=== PATIENT | female | born 1965 ===

== ENCOUNTER 2019-02-02 10:04 | Emergency (ER) | payer OTHER ==
[~2019-02-02] VITALS: Ht 157.5 cm; Wt 74.4 kg
[2019-02-02] MEDS ORDERED: COZAAR25 MG (11:14)
[2019-02-02] MEDS ORDERED: NORFLEX100MG PO (14:47)
== END 2019-02-02 15:01 | disposition home or self-care (01) ==
LOC: ER 10:04
DX: M62.838 Other muscle spasm (principal); I10 Essential (primary) hypertension

== ENCOUNTER 2019-06-06 11:47 | Emergency (ER) | payer OTHER ==
[~2019-06-06] VITALS: Ht 157.5 cm; Wt 72.6 kg
[~2019-06-06 11:47] MED LIST: COZAAR25 MG; NORFLEX100MG PO
== END 2019-06-06 14:46 | disposition home or self-care (01) ==
LOC: ER 11:47
DX: G44.219 Episodic tension-type headache, not intractable (principal)

== ENCOUNTER 2023-04-28 21:32 | Emergency (ER) | payer OTHER ==
[~2023-04-28] VITALS: Ht 157.5 cm; Wt 71.7 kg
[2023-04-28] MEDS ORDERED: ROSUVASTATIN CAL5 MG PO (21:42)
[2023-04-28] MEDS ORDERED: BUPROPION XL150 MG PO (21:42)
[2023-04-29] MEDS ORDERED: LEVSIN/SL0.125 MG SL (02:40)
[2023-04-29] MEDS ORDERED: FAMOTIDINE40 MG PO ×2 (02:41→02:43)
== END 2023-04-29 03:05 ==
LOC: ER 21:32
DX: R10.13 Epigastric pain (principal); Z91.013 Allergy to seafood